=== PATIENT | female | born 1980 | race African-American/Black ===

== ENCOUNTER 2017-02-21 10:00 | Emergency (ER) | payer SELFPAY ==
[~2017-02-21] VITALS: Ht 160 cm; Wt 81.8 kg
[~2017-02-21 10:00] MED LIST: BACTRIM DS 8001 TAB PO; CATAPRES0.3 MG PO; NORCO 325 MG-51 TAB PO; PHENERGAN 25 TA25 MG PO; ZOVIRAX 200MG200 MG PO; ZOVIRAX400 MG PO
[2017-02-21 10:05] VITALS: BP 147/81; TEMP 98.5
[2017-02-21] MEDS ORDERED: INDERAL40 MG PO (10:08)
[2017-02-21] MEDS ORDERED: PROZAC40 MG PO (10:08)
[2017-02-21] MEDS ORDERED: PERCOCET 325 MG1 TA2 PO (15:18)
[2017-02-21 15:35] VITALS: PULSE 69
[2017-06-28] MEDS ORDERED: DIFLUCAN 100MG100 MG PO (14:48)
== END 2017-02-21 15:35 | disposition home or self-care (01) ==
LOC: COL.ER 10:00
DX: G56.01 Carpal tunnel syndrome, right upper limb (principal); M25.521 Pain in right elbow
CPT/HCPCS: J1170

== ENCOUNTER → 2017-03-19 | Outpatient (CLI) | payer SELFPAY ==
[~2017-03-19] MED LIST changes: +AMBIEN 10MG10 MG PO; +AMOXICILLIN 8751 TAB PO; +DEPAKENE250 MG PO; +DIFLUCAN 100MG100 MG PO; +INDERAL40 MG PO; +PERCOCET 325 MG1 TA2 PO; +PROZAC40 MG PO
[2017-03-19 14:00] LABS: HEMATOCRIT 39.2 % (37.0-47.0); HEMOGLOBIN 13.6 g/dl (12.5-16.0); MEAN CELL VOLUME 93 fl (80.0-100.0); MEAN CORPUSCULAR HEMOGLOBIN 32 pg (27.0-31.0); MEAN CORPUSCULAR HGB CONC 35 g/dl (33.0-37.0); MEAN PLATELET VOLUME 9.8 fl (7.4-10.4); PLATELET COUNT 318 K/mm3 (130-400); RED BLOOD COUNT 4.23 M/mm3 (4.10-5.30); REDCELL DISTRIBUTION WIDTH-CV 11.9 % (11.5-14.5); WHITE BLOOD COUNT 7.1 K/mm3 (4.8-10.8)
[2017-03-19 14:27] LABS: ERYTHROCYTE SEDIMENTATION RATE 1 mm/hr (0-20)
== END ==
LOC: COL.RAD 13:32
DX: M18.11 Unilateral primary osteoarthritis of first carpometacarpal joint, right hand (principal)

== ENCOUNTER 2017-06-26 17:02 | Emergency (ER) | payer SELFPAY ==
[~2017-06-26] VITALS: Ht 160 cm; Wt 89.1 kg
[~2017-06-26 17:02] MED LIST changes: -AMBIEN 10MG10 MG PO; -AMOXICILLIN 8751 TAB PO; -DEPAKENE250 MG PO; -DIFLUCAN 100MG100 MG PO
[2017-06-26 17:11] VITALS: BP 142/94; TEMP 98.3
[2017-06-26] MEDS ORDERED: AMBIEN 10MG10 MG PO (17:16)
[2017-06-26] MEDS ORDERED: DEPAKENE250 MG PO (17:16)
[2017-06-26] MEDS ORDERED: AMOXICILLIN 8751 TAB PO (18:13)
[2017-06-26 18:45] VITALS: PULSE 70
[2017-06-28] MEDS ORDERED: DIFLUCAN 100MG100 MG PO (14:48)
== END 2017-06-26 18:45 | disposition home or self-care (01) ==
LOC: COL.ER 17:02
DX: L08.89 Other specified local infections of the skin and subcutaneous tissue (principal); I10 Essential (primary) hypertension; J45.909 Unspecified asthma, uncomplicated; F17.210 Nicotine dependence, cigarettes, uncomplicated

== ENCOUNTER 2017-11-21 18:42 | Emergency (ER) | payer OTHER ==
[~2017-11-21] VITALS: Ht 160 cm; Wt 77.3 kg
[~2017-11-21 18:42] MED LIST changes: +AMBIEN 10MG10 MG PO; +AMOXICILLIN 8751 TAB PO; +DEPAKENE250 MG PO; +DIFLUCAN 100MG100 MG PO; +DULCOLAX STOOL100 MG PO; +INDERAL 20MG20 MG PO; -INDERAL40 MG PO; +NORVASC 10MG10 MG PO; +PROZAC 20MG20 MG PO; -PROZAC40 MG PO
[2017-11-21 18:46] VITALS: BP 136/80; TEMP 98.5
[2017-11-21] MEDS ORDERED: TAMIFLU 75MG75 MG PO (20:15)
[2017-11-21] MEDS ORDERED: PREDNISONE20 MG PO (20:15)
[2017-11-21 20:38] VITALS: PULSE 85
== END 2017-11-21 20:38 | disposition home or self-care (01) ==
LOC: COL.ER 18:42
DX: J10.1 Influenza due to other identified influenza virus with other respiratory manifestations (principal); J45.909 Unspecified asthma, uncomplicated; I10 Essential (primary) hypertension; F17.210 Nicotine dependence, cigarettes, uncomplicated; Z88.5 Allergy status to narcotic agent
CPT/HCPCS: J7512

== ENCOUNTER 2017-12-09 11:01 | Emergency (ER) | payer OTHER ==
[~2017-12-09] VITALS: Ht 160 cm; Wt 77.3 kg
[~2017-12-09 11:01] MED LIST changes: +PREDNISONE20 MG PO; +TAMIFLU 75MG75 MG PO
[2017-12-09] MEDS ORDERED: NORCO 325 MG-51 TAB PO (12:45)
[2017-12-09] MEDS ORDERED: DIFLUCAN150 MG PO (12:45)
[2017-12-09] MEDS ORDERED: AMOXICILLIN 8751 TAB PO (12:45)
[2017-12-09 12:57] VITALS: BP 124/70; PULSE 82; TEMP 97
== END 2017-12-09 12:58 | disposition home or self-care (01) ==
LOC: COL.ER 11:01
DX: T81.4XXA Infection following a procedure, initial encounter (principal); I10 Essential (primary) hypertension; F17.210 Nicotine dependence, cigarettes, uncomplicated; Z88.5 Allergy status to narcotic agent

== ENCOUNTER → 2018-06-23 | Outpatient (CLI) | payer SELFPAY ==
[~2018-06-23] MED LIST changes: +DIFLUCAN150 MG PO
[2018-06-23 18:45] LABS: ALBUMIN 3.5 gm/dL (3.5-5.0); BILIRUBIN,TOTAL 0.4 mg/dL (0.0-1.0); CALCIUM 9.2 mg/dL (8.4-10.2); CREATININE, serum 0.71 mg/dL (0.52-1.25); POTASSIUM 4.5 mmol/L (3.4-5.0); TOTAL PROTEIN 6.2 gm/dL (6.4-8.2)
[2018-06-23 19:14] LABS: THYROID STIMULATING HORMONE 0.954 uIU/mL (0.465-4.680)
== END ==
LOC: COL.LAB 18:20
DX: I10 Essential (primary) hypertension (principal); F32.9 Major depressive disorder, single episode, unspecified; E04.1 Nontoxic single thyroid nodule

== ENCOUNTER → 2018-07-07 | Outpatient (CLI) | payer SELFPAY | LOC: ZCOL.LAB 19:09 | DX: Z01.89 Encounter for other specified special examinations (principal); Z53.9 Procedure and treatment not carried out, unspecified reason ==

== ENCOUNTER 2019-02-17 14:34 | Emergency (ER) | payer SELFPAY ==
[~2019-02-17] VITALS: Ht 160 cm; Wt 90.9 kg
[2019-02-17 15:08] VITALS: BP 149/93; TEMP 97.7
[2019-02-17] MEDS ORDERED: LITHIUM 30300 MG/CAP PO ×2 (15:26→17:58)
[2019-02-17 15:37] LABS: COLLECTION METHOD CLEAN CATCH
[2019-02-17 15:45] LABS: BASO # 0.1 (0.0-0.2); BASO % 0.7 % (0.0-2.0); EOS # 0.1 (0.0-0.7); EOS % 1.8 % (0-4.0); GRAN # 4.3 (1.4-6.5); GRAN % 63.7 % (42.2-75.2); HEMATOCRIT 40.4 % (37.0-47.0); HEMOGLOBIN 13.4 g/dl (12.5-16.0); LYMPH # 1.7 (1.2-3.4); LYMPH % 25.7 % (20.0-51.0); MEAN CELL VOLUME 94 fl (80.0-100.0); MEAN CORPUSCULAR HEMOGLOBIN 31 pg (27.0-31.0); MEAN CORPUSCULAR HGB CONC 33 g/dl (33.0-37.0); MONO # 0.5 (0.1-0.6); MONO % 7.7 % (1.7-9.3); PLATELET COUNT 350 K/mm3 (130-400); RED BLOOD COUNT 4.31 M/mm3 (4.10-5.30); REDCELL DISTRIBUTION WIDTH-CV 11.7 % (11.5-14.5)
[2019-02-17 15:46] LABS: MUCOUS Present /lpf; PH 6 (5-8); SQUAMOUS EPITHELIAL 0-2 /hpf; URINE APPEARANCE Clear; URINE BACTERIA None Seen /hpf; URINE BILIRUBIN Negative (NEGATIVE); URINE BLOOD Negative (NEGATIVE); URINE COLOR Yellow; URINE GLUCOSE Negative (NEGATIVE); URINE KETONE Negative (NEGATIVE); URINE LEUKOCYTE ESTERASE Negative (NEGATIVE); URINE NITRATE Negative (NEGATIVE); URINE PROTEIN(semi-quant) Negative (NEGATIVE); URINE RBC None Seen /hpf; URINE UROBILINOGEN Negative (NEGATIVE); URINE WBC 0-2 /hpf
[2019-02-17 15:56] LABS: ALBUMIN 4.2 gm/dL (3.5-5.0); BILIRUBIN,TOTAL 0.3 mg/dL (0.0-1.0); CALCIUM 9.5 mg/dL (8.4-10.2); CREATININE, serum 0.64 (0.52-1.25); TOTAL PROTEIN 7.4 gm/dL (6.4-8.2)
[2019-02-17 16:13] LABS: TRICYCLIC ANTIDEPRESS URINE NEGATIVE
[2019-02-17] MEDS ORDERED: TRILAFON8 MG PO (16:55)
[2019-02-17] MEDS ORDERED: CATAPRES0.3 MG PO (17:58)
[2019-02-17] MEDS ORDERED: ATARAX 25MG25 MG/TAB PO (17:58)
[2019-02-17] MEDS ORDERED: PROZAC 20MG20 MG PO (18:03)
[2019-02-17 18:36] VITALS: PULSE 79
== END 2019-02-17 18:38 | disposition home or self-care (01) ==
LOC: COL.ER 14:34
PROVIDERS: Emergency Medicine
DX: F41.9 Anxiety disorder, unspecified (principal); R25.1 Tremor, unspecified; I10 Essential (primary) hypertension; F17.210 Nicotine dependence, cigarettes, uncomplicated; F12.90 Cannabis use, unspecified, uncomplicated; F31.9 Bipolar disorder, unspecified; F42.9 Obsessive-compulsive disorder, unspecified; Z90.49 Acquired absence of other specified parts of digestive tract; Z88.5 Allergy status to narcotic agent
CPT/HCPCS: J7030